=== PATIENT | female | born 1950 | race Caucasian/White ===

== ENCOUNTER 2024-02-11 20:20 | Inpatient (IN) ==
[2024-02-11 20:48] LABS: iSTAT Creatinine 0.6 mg/dl (0.6-1.3); iSTAT Hemoglobin 8.5 g/dl (12.0-16.0); iSTAT Ionized Calcium 1.06 mmol/l (1.12-1.32); iSTAT Potassium 3.4 mmol/L (3.3-5.0)
[2024-02-11] MEDS: MAGNESIUM SULFATE / D5W 1 GM/100 ML BAG IV STA (20:49)
[2024-02-11] MEDS: POTASSIUM CHLORIDE / WTR 10 MEQ/100 ML PLCT IV SCH (20:49)
[2024-02-11] MEDS: LACTATED RINGER'S 500 ML IV ONE (20:56)
[2024-02-11 21:13] LABS: Albumin Globulin Ratio 1.5 (0.9-2); Albumin Level 2.9 gm/dl (3.4-5.0); Bilirubin,Total 1.2 mg/dl (0.2-1.0); Calcium 8.3 mg/dl (8.6-10.3); Creatinine Clr Calc Pharmacy 77.1 ml/min; Magnesium 1.8 mg/dl (1.7-2.4); Phosphorus 3.3 mg/dl (2.5-4.9); Potassium 3.5 mmol/L (3.5-5.1); Total Protein 4.9 gm/dl (6.0-8.3)
[2024-02-11 21:19] LABS: INR 1.1 (0.9-1.1); Prothrombin Time 11.7 Seconds (9.0-12.0)
--- NOTE | 2024-02-11 21:23 | Emergency Department Note ---
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 (6-23) mg/dl Creatinine (0.6-1.2) mg/dl POC Creatinine (0.6-1.3) mg/dl Est Cr Clr Drug Dosing ml/min eGFR BUN/Creatinine Ratio (10-20) Glucose (70-99(Fasting)) mg/dl POC Glucose (other) (70-99) mg/dl Lactate 2.6 H* (0.4-2.0) mmol/L Calcium (8.6-10.3) mg/dl POC Ioniz Calcium Kristine (1.12-1.32) mmol/l Phosphorus (2.5-4.9) mg/dl Magnesium (1.7-2.4) mg/dl Iron (35-150) mcg/dl Unsaturated IBC (155-355) mcg/dl Transferrin (200-360) mg/dl Ferritin (8-388) ng/ml Total Bilirubin (0.2-1.0) mg/dl AST (13-39) U/L ALT (7-52) U/L Alkaline Phosphatase (34-104) U/L Troponin I High Sens (0-14) pg/ml B-Natriuretic Peptide (0-100) pg/ml Total Protein (6.0-8.3) gm/dl Albumin (3.4-5.0) gm/dl Globulin (2.5-4.0) gm/dl Albumin/Globulin Ratio (0.9-2) Lipase (11-82) U/L Vitamin B12 (180-914) pg/ml Folate (>5.38) ng/ml Procalcitonin (0-0.5) ng/ml TSH (0.300-4.500) uIu/ml Urine Color Urine Appearance (Clear) Urine pH (4.5-7.5) Ur Specific [place] (1.000-1.030) Urine Protein (Negative) Urine Glucose (UA) (Negative) Urine Ketones (Negative) Urine Blood (Negative) Urine Nitrite (Negative) Urine Bilirubin (Negative) Urine Urobilinogen (Negative) Ur Leukocyte Esterase (Negative) Urine WBC (Auto) (0-5) /hpf Urine RBC (Auto) (0-2) /hpf U Hyaline Cast (Auto) (0-2) /lpf U Epithel Cells (Auto) (0-2) /hpf Urine Bacteria (Auto) (None Seen) Granular Casts (None Prsent) /lpf Urine Mucus (None Prsent) Nasal Screen MRSA (PCR) Negative (Negative) Adenovirus (PCR) (NotDetected) B. pertussis DNA (PCR) (NotDetected) B.parapertussis DNA PCR (NotDetected) C. pneumoniae DNA (PCR) (NotDetected) Coronavirus OC43 (PCR) (NotDetected) Coronavirus HKU1 (PCR) (NotDetected) Coronavirus 229E (PCR) (NotDetected) SARS-CoV-2 (PCR) (NotDetected) Coronavirus NL63 (PCR) (NotDetected) Human Metapneumovir PCR (NotDetected) Influenza Type A (PCR) (NotDetected) Influenza Type B (PCR) (NotDetected) M. pneumoniae (PCR) (NotDetected) Parainfluenza 1 (PCR) (NotDetected) Parainfluenza 2 (PCR) (NotDetected) Parainfluenza 3 (PCR) (NotDetected) Parainfluenza 4 (PCR) (NotDetected) RSV (PCR) (NotDetected) Entero/Rhino (PCR) (NotDetected) Administered Medications Discontinued Medications Gadobutrol (Gadobutrol 65ml Vial) 7.5 ml IV ONCE ONE Stop: 02/12/24 00:54 Last Admin: 02/12/24 00:53 Dose: 7.5 ml Documented By: YENNI Lactated Ringer's (Lr) 500 mls @ 999 mls/hr IV .Q31M ONE Stop: 02/11/24 21:10 Last Infusion: 02/11/24 21:25 Dose: Infused Documented By: Admin: 02/11/24 20:56 Dose: 999 mls/hr Documented By: ANUPAMA Potassium Chloride (K Bhupinder / Wtr) 10 meq in 100 mls @ 100 mls/hr IV Q1H ANNETTE; Protocol Stop: 02/11/24 23:44 Last Infusion: 02/12/24 01:15 Dose: Infused Documented By: Admin: 02/11/24 23:06 Dose: 100 mls/hr Documented By: Infusion: 02/11/24 22:38 Dose: Infused Documented By: Admin: 02/11/24 21:38 Dose: 100 mls/hr Documented By: Infusion: 02/11/24 21:38 Dose: Infused Documented By: Admin: 02/11/24 20:49 Dose: 100 mls/hr Documented By: EMB Magnesium Sulfate/Dextrose (Magnesium Sulfate / D5w) 1 gm in 100 mls @ 100 mls/hr IV NOW STA Stop: 02/11/24 21:40 Last Infusion: 02/11/24 21:43 Dose: Infused Documented By: Admin: 02/11/24 20:49 Dose: 100 mls/hr Documented By: EMB Lactated Ringer's (Lr) 500 mls @ 999 mls/hr IV .Q31M STA Stop: 02/12/24 00:15 Last Infusion: 02/12/24 02:10 Dose: Infused Documented By: Admin: 02/12/24 01:17 Dose: 999 mls/hr Documented By: EMB Ceftriaxone Sodium (Rocephin) 2,000 mg in 50 mls @ 100 mls/hr IV ONE STA Stop: 02/12/24 00:14 Last Infusion: 02/12/24 02:10 Dose: Infused Documented By: Admin: 02/12/24 01:17 Dose: 100 mls/hr Documented By: EMB Ioversol (Optiray 320 100ml) 92 ml IV ONCE ONE Stop: 02/11/24 22:11 Last Admin: 02/11/24 22:10 Dose: 92 ml Documented By: ALEX Imaging Data My Impression: Radiologist's Impression: Chest X-Ray 02/11/24 20:39 Exam(s): XR CXR 1 VIEW EXAM: XR Chest, 1 View CLINICAL HISTORY: Reason for exam: Chest pain, nonspecific. TECHNIQUE: Frontal view of the chest. COMPARISON: No relevant prior studies available. FINDINGS: Lungs: See below. Pleural space: Unremarkable. No pneumothorax. Heart: Unremarkable. No cardiomegaly. Mediastinum: Unremarkable. Normal mediastinal contour. Bones/joints: Unremarkable. No acute fracture. Lymph nodes: Right hilar lymphadenopathy. Patchy infiltrate right lower lobe likely infectious or inflammatory etiology. Other findings: Left chest report. IMPRESSION: Right hilar lymphadenopathy Right lower lobe pneumonia Left chest port Electronically signed by: Mejia Bell MD 02/11/24 22:[address] 02/11/24 21:41 Exam(s): CT CHEST With Contrast IV Amt: 92 ml opti 320 EXAM: CT Chest With Intravenous Contrast CLINICAL HISTORY: Reason for exam: sob, pulm edema vs pna. TECHNIQUE: Axial computed tomography images of the chest with intravenous contrast. CTDI is 16.84 mGy and DLP is 526.89 mGy-cm. Automated exposure control was utilized for the study. A dose lowering technique was utilized adhering to the principles of ALARA. CONTRAST: Patient received 92 ml opti 320 of IV contrast COMPARISON: No relevant prior studies available. FINDINGS: Limitations: Exam limited secondary to patient respiratory motion. Lungs: Unremarkable. No mass. No consolidation. No large central pulmonary embolus. Pleural space: 3.3 cm left lower lobe pulmonary mass with innumerable bilateral areas of pulmonary nodularity present. Confluent opacity within the anterior aspect the right middle lobe with small adjacent pleural effusion. Small bilateral pleural effusions. No pneumothorax. Heart: There is suggestion of a 2.2 cm mass within the left ventricle. No cardiomegaly. No significant pericardial effusion. No significant coronary artery calcifications. Bones/joints: Unremarkable. No acute fracture. No dislocation. Soft tissues: Unremarkable. Vasculature: Unremarkable. No thoracic aortic aneurysm. Lymph nodes: Unremarkable. No enlarged lymph nodes. Liver: Hypodensity right hepatic lobe measuring 1.3 cm. Left hepatic lobe hypodensity measuring 1.6 cm IMPRESSION: 3.3 cm left lower lobe pulmonary mass with innumerable bilateral areas of pulmonary nodularity present. Confluent opacity within the anterior aspect the right middle lobe with small adjacent pleural effusion. Findings are consistent with primary lung neoplasm with bilateral metastatic disease There appears to be 2.2 cm mass within the left ventricle. Echocardiogram recommended further evaluation. Hepatic hypodensities as described above. These are nonspecific findings but metastatic disease cannot be excluded. PET scan may be obtained for further evaluation. 2. Small bilateral pleural effusions. Electronically signed by: Mejia Bell MD 02/11/24 23:04 PM Brain MRI 02/12/24 00:06 EXAM: MR brain wo/w con CLINICAL HISTORY: presents via EMS with A/Fib weakness. episodes of confusion. patient answered her MRI screening questions w/o difficulty. history of breast cancer. injected 7.5cc gadavist through existing iv left arm uneventful at 0050. room A12B in the ED. sent to [facility] 492 images TECHNIQUE: Multisequential and multiplanar images of the brain were submitted for review with and without contrast. COMPARISON: None. FINDINGS: Multiple, variable sized lesions with perilesional edema and showing avid heterogeneous enhancement are noted involving both cerebral hemispheres (right more than left) add right cerebellar hemisphere. These are predominantly distributed at pratt-white matter interface. No blooming is noted in them. These show hypointense signal on T2Wt images. Largest of them measures 2.2 x 1 cm in the right high frontal lobe. Mass effect is seen in the form of effacement of adjacent sulcal spaces. No midline shift/uncal /tonsillar herniation is noted. Enhancing extra-axial lesion of size 2.3 x 0.9 cm is noted along the left anterior temporal convexity. Extraosseous soft tissue component is noted at this level, well appreciated on axial T2Wt images. Pachymeningeal thickening is smooth enhancement is noted, suggestive of pachymeningitis (more on left side). Multiple chronic small vessel ischemic changes are noted. Multiple T1 hypointense calvarium lesions are also noted, largest of them is seen in the left high frontal region, which appears expansile in nature. These are better appreciated on sagittal T1Wt images. Rest of the brain parenchyma reveals normal signal intensity. Diffusion-weighted sequences show no evidence of acute ischemic infarction. The rest of the ventricles, sulci, and basal cisterns are symmetric and normal in size and configuration. Midline structures including the pituitary gland, corpus callosum, pineal region, and brainstem are unremarkable. The craniovertebral junction is within normal limits. Severe opacification of right maxillary sinus is noted. The paranasal sinuses and mastoid air cells are clear. Orbital structures are unremarkable. Appropriate flow voids are present in the visualized intracranial vessels. IMPRESSION: 1. Multiple variable sized, avidly enhancing lesions with perilesional edema involving supratentorial and infratentorial neuroparenchyma as described above. Possibility of metastasis needs consideration. 2. 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 3. Multiple variable sized calvarial lesions as described above, possibility of metastases. 4. Chronic small vessel ischemic changes. 5. 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 6. Severe right maxillary sinusitis. Electronically signed by Enoc Sdihu 02-12-2024 02:25 AM Discharge Plan Visit Data Chief Complaint: Cardiac Assessment Stated Complaint: RAPID AFIB, DIZZY ED Provider: Troy Geronimo Discharge Problem: Atrial fibrillation status post cardioversion, Hypokalemia, Iron deficiency anemia, Elevated troponin, Abnormal CT of the chest Patient Disposition: Admitted As Inpatient Discharge Instructions Interventions: ED Discharge Assessment Last Done: 02/12/24 02:11 Discharge Problem: Iron deficiency anemia Qualifiers: Iron deficiency anemia type: unspecified iron deficiency Qualified Code(s): D 50.9 - Iron deficiency anemia, unspecified
[2024-02-11 21:24] LABS: Hematocrit (blood only) 25.7 % (37.0-47.0); Hemoglobin 8.2 g/dl (12.0-16.0); Mean Corpuscular Hemoglobin 27.4 pg (25.0-34.0); Mean Corpuscular Hgb Conc 31.9 g/dL (32.0-36.0); Mean Platelet Volume 9.7 fL (9.4-12.4); Nucleated RBC # (auto) 0.06 K/uL (0.00-0.12); Nucleated RBC % (auto) 0.4 %; Platelet Count 410 K/uL (130-400); RDW Coefficient of Variation 17.4 % (11.5-14.5); RDW Standard Deviation 54.1 fL (36.4-46.3); Red Blood Count 2.99 M/uL (4.20-5.40)
[2024-02-11 21:29] LABS: Thyroid Stimulating Hormone 2.087 uIu/ml (0.300-4.500)
[2024-02-11 21:36] LABS: Troponin I High Sensitivity 560.9 pg/ml (0-14)
[2024-02-11 21:39] LABS: Adenovirus PCR Not Detected (NotDetected); Bordetella parapertussis PCR Not Detected (NotDetected); Bordetella pertussis PCR Not Detected (NotDetected); Chlamydia pneumoniae PCR Not Detected (NotDetected); Coronavirus 229E PCR Not Detected (NotDetected); Coronavirus CoV-2 (COVID19)PCR Not Detected (NotDetected); Coronavirus HKU1 PCR Not Detected (NotDetected); Coronavirus NL63 PCR Not Detected (NotDetected); Coronavirus OC43PCR Not Detected (NotDetected); Human Metapneumovirus PCR Not Detected (NotDetected); Influenza A PCR Not Detected (NotDetected); Influenza B PCR Not Detected (NotDetected); Mycoplasma pneumoniae PCR Not Detected (NotDetected); Parainfluenza Virus 1 PCR Not Detected (NotDetected); Parainfluenza Virus 2 PCR Not Detected (NotDetected); Parainfluenza Virus 3 PCR Not Detected (NotDetected); Parainfluenza Virus 4 PCR Not Detected (NotDetected); Respiratory Syncytial VirusPCR Not Detected (NotDetected); Rhinovirus/Enterovirus PCR Not Detected (NotDetected)
[2024-02-11 21:43] LABS: Reticulocyte % 1.42 % (0.50-2.00)
[2024-02-11] MEDS: OPTIRAY 320 100ml IV ONE (22:10)
[2024-02-11 22:20] LABS: Basophils # (auto) 0.15 K/uL (0.00-0.20); Eosinophils # (auto) 0.04 K/uL (0.00-0.50); Eosinophils % (auto) 0.3 %; Immature Granulocytes # (auto) 0.81 K/uL (0.01-0.20); Immature Granulocytes % (auto) 5.4 %; Lymphocytes # (auto) 0.71 K/uL (1.20-3.40); Lymphocytes % (auto) 4.8 %; Monocytes # (auto) 0.75 K/uL (0.11-0.59); Neutrophils # (auto) 12.44 K/uL (1.40-6.50); Neutrophils % (auto) 83.5 %; Ovalocytes 1+
--- NOTE | 2024-02-11 22:48 | XRay Report ---
Exam(s): XR CXR 1 VIEW EXAM: XR Chest, 1 View CLINICAL HISTORY: Reason for exam: Chest pain, nonspecific. TECHNIQUE: Frontal view of the chest. COMPARISON: No relevant prior studies available. FINDINGS: Lungs: See below. Pleural space: Unremarkable. No pneumothorax. Heart: Unremarkable. No cardiomegaly. Mediastinum: Unremarkable. Normal mediastinal contour. Bones/joints: Unremarkable. No acute fracture. Lymph nodes: Right hilar lymphadenopathy. Patchy infiltrate right lower lobe likely infectious or inflammatory etiology. Other findings: Left chest report. IMPRESSION: Right hilar lymphadenopathy Right lower lobe pneumonia Left chest port Electronically signed by: Mejia Bell MD 02/11/24 22:46 PM
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
--- NOTE | 2024-02-11 23:06 | CT Scan Report ---
Exam(s): CT CHEST With Contrast IV Amt: 92 ml opti 320 EXAM: CT Chest With Intravenous Contrast CLINICAL HISTORY: Reason for exam: sob, pulm edema vs pna. TECHNIQUE: Axial computed tomography images of the chest with intravenous contrast. CTDI is 16.84 mGy and DLP is 526.89 mGy-cm. Automated exposure control was utilized for the study. A dose lowering technique was utilized adhering to the principles of ALARA. CONTRAST: Patient received 92 ml opti 320 of IV contrast COMPARISON: No relevant prior studies available. FINDINGS: Limitations: Exam limited secondary to patient respiratory motion. Lungs: Unremarkable. No mass. No consolidation. No large central pulmonary embolus. Pleural space: 3.3 cm left lower lobe pulmonary mass with innumerable bilateral areas of pulmonary nodularity present. Confluent opacity within the anterior aspect the right middle lobe with small adjacent pleural effusion. Small bilateral pleural effusions. No pneumothorax. Heart: There is suggestion of a 2.2 cm mass within the left ventricle. No cardiomegaly. No significant pericardial effusion. No significant coronary artery calcifications. Bones/joints: Unremarkable. No acute fracture. No dislocation. Soft tissues: Unremarkable. Vasculature: Unremarkable. No thoracic aortic aneurysm. Lymph nodes: Unremarkable. No enlarged lymph nodes. Liver: Hypodensity right hepatic lobe measuring 1.3 cm. Left hepatic lobe hypodensity measuring 1.6 cm IMPRESSION: 3.3 cm left lower lobe pulmonary mass with innumerable bilateral areas of pulmonary nodularity present. Confluent opacity within the anterior aspect the right middle lobe with small adjacent pleural effusion. Findings are consistent with primary lung neoplasm with bilateral metastatic disease There appears to be 2.2 cm mass within the left ventricle. Echocardiogram recommended further evaluation. Hepatic hypodensities as described above. These are nonspecific findings but metastatic disease cannot be excluded. PET scan may be obtained for further evaluation. 2. Small bilateral pleural effusions. Electronically signed by: Mejia Bell MD 02/11/24 23:04 PM
[2024-02-11 23:14] LABS: Appearance Urine Clear (Clear); Bacteria Urine Automated None Seen (None Seen); Bilirubin Urine Negative (Negative); Blood Urine Negative (Negative); Color Urine Yellow; Glucose Urine UA 1+ (Negative); Ketones Urine 4+ (Negative); Leukocyte Esterase Urine Negative (Negative); Nitrite Urine Negative (Negative); Protein Urine 2+ (Negative); RBC Urine Automated 0-2 /hpf (0-2); Specific Gravity Urine 1.022 (1.000-1.030); Urobilinogen Urine Negative (Negative); pH Urine 5.5 (4.5-7.5)
[2024-02-11 23:26] LABS: Granular Casts Urine Present /lpf (None Prsent); Mucus Urine Present (None Prsent)
[2024-02-11 23:27] LABS: Folate (Folic Acid),Ser orPlas 10.05 ng/ml (>5.38)
[2024-02-12] MEDS: GADOBUTROL 65ML VIAL IV ONE (00:53)
[2024-02-12] MEDS: LACTATED RINGER'S 500 ML IV STA (01:17)
[2024-02-12] MEDS: cefTRIAXone SODIUM 2,000 MG/50 ML BAG IV STA (01:17)
--- NOTE | 2024-02-12 02:26 | Magnetic Resonance Report ---
EXAM: MR brain wo/w con CLINICAL HISTORY: presents via EMS with A/Fib weakness. episodes of confusion. patient answered her MRI screening questions w/o difficulty. history of breast cancer. injected 7.5cc gadavist through existing iv left arm uneventful at 0050. room A12B in the ED. sent to [place] [id number] images TECHNIQUE: Multisequential and multiplanar images of the brain were submitted for review with and without contrast. COMPARISON: None. FINDINGS: Multiple, variable sized lesions with perilesional edema and showing avid heterogeneous enhancement are noted involving both cerebral hemispheres (right more than left) add right cerebellar hemisphere. These are predominantly distributed at pratt-white matter interface. No blooming is noted in them. These show hypointense signal on T2Wt images. Largest of them measures 2.2 x 1 cm in the right high frontal lobe. Mass effect is seen in the form of effacement of adjacent sulcal spaces. No midline shift/uncal /tonsillar herniation is noted. Enhancing extra-axial lesion of size 2.3 x 0.9 cm is noted along the left anterior temporal convexity. Extraosseous soft tissue component is noted at this level, well appreciated on axial T2Wt images. Pachymeningeal thickening is smooth enhancement is noted, suggestive of pachymeningitis (more on left side). Multiple chronic small vessel ischemic changes are noted. Multiple T1 hypointense calvarium lesions are also noted, largest of them is seen in the left high frontal region, which appears expansile in nature. These are better appreciated on sagittal T1Wt images. Rest of the brain parenchyma reveals normal signal intensity. Diffusion-weighted sequences show no evidence of acute ischemic infarction. The rest of the ventricles, sulci, and basal cisterns are symmetric and normal in size and configuration. Midline structures including the pituitary gland, corpus callosum, pineal region, and brainstem are unremarkable. The craniovertebral junction is within normal limits. Severe opacification of right maxillary sinus is noted. The paranasal sinuses and mastoid air cells are clear. Orbital structures are unremarkable. Appropriate flow voids are present in the visualized intracranial vessels. IMPRESSION: 1. Multiple variable sized, avidly enhancing lesions with perilesional edema involving supratentorial and infratentorial neuroparenchyma as described above. Possibility of metastasis needs consideration. 2. 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 3. Multiple variable sized calvarial lesions as described above, possibility of metastases. 4. Chronic small vessel ischemic changes. 5. 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 6. Severe right maxillary sinusitis. Electronically signed by Enoc Sidhu 02-12-2024 02:25 AM
[2024-02-12 02:29] LABS: BUN Creatinine Ratio 30.8 (10-20); Calcium 7.6 mg/dl (8.6-10.3); Creatinine Clr Calc Pharmacy 94.9 ml/min; Potassium 3.9 mmol/L (3.5-5.1)
[2024-02-12] MEDS ORDERED: DEXAMETHASONE IV STA (02:51)
[2024-02-12] MEDS ORDERED: CARBOHYDRATES FOR HYPOGLYCEMIA PO PRN (02:58)
[2024-02-12] MEDS ORDERED: DEXTROSE 50% 50 ML SYRINGE IV PRN (02:58)
[2024-02-12] MEDS ORDERED: GLUCOSE 10 TAB/TUBE PO PRN (02:58)
[2024-02-12] MEDS ORDERED: GLUCAGON FOR INJ 1 MG VIAL SQ PRN (02:58)
[2024-02-12] MEDS ORDERED: GLUCOSE 40% GEL 15 GM TUBE PO PRN (02:58)
[2024-02-12] MEDS ORDERED: ALUMINUM/MAGNESIUM SUSP 30 ML UDC PO PRN (03:05)
[2024-02-12] MEDS ORDERED: MAGNESIUM HYDROXIDE SUSP 30 ML UDC PO PRN (03:05)
[2024-02-12] MEDS ORDERED: POLYETHYLENE (MIRALAX) 17 GM PACK PO PRN (03:05)
[2024-02-12] MEDS: LACTATED RINGER'S 1,000 ML IV STA (03:25)
[2024-02-12] MEDS: CALCIUM GLUCONATE 1,000 MG/60 ML BAG IV SCH (03:30)
[2024-02-12] MEDS: dexAMETHasone 4 MG in SYRINGE 0 ML IV ONE (03:54)
[2024-02-12] MEDS ORDERED: METOPROLOL TARTRATE 1 MG/ML VIAL IV PRN (07:20)
--- NOTE | 2024-02-12 07:20 | Hospitalist Progress Note ---
Date of Service February 12, 2024 Assessment & Plan (1) Atrial fibrillation status post cardioversion: Plan: A fib with RVR with rates in the 200s and hemodynamic instability. Cardioverted patient with prior adverse reaction to dilt and amio. Remain on metoprolol and With brain mets will hold Xarelto for now. Electrolytes are replete Continue scheduled metoprolol and prn iv doses cardiology consult maintain beta-eden at this point in time, echocar diogram reveals calcified left ventricular mass Elevated troponin from demand ischemia with elevated rate, cardioversion and cardiac mass (2) Sepsis: Plan: Patient with signs of sepsis - elevated lactate, hypotension, tachycardia, leukocytosis. Sepsis protocol for fluid resuscitation - 1.5 mL. Given 1L LR for fluid resuscitation and 1 L @ 80 mIVF. BioFire negative. Procal negative. UA contaminated specimen concern for gram negative pneumonia.-> empiric antibiotics - Ceftriaxone (3) Elevated troponin: Plan: Asymptomatic. Elevated likely in the setting of elevated rates and recent cardioversion. Will trend to peak. Would hesitate to start heparin gtt with brain mets and current level of anemia. (4) Breast cancer: Plan: Concern for metastatic breast cancer as there are suspicious lesions on the liver and the brain->patient aware that there may be new mets her oncologist, Dr. Harjeet Sawyer he returned my phone call and we discussed results of her imaging studies which she feel is significantly progressed from previous he will try to arrange an outpatient follow-up and asked if he pushed the images to him which I phoned radiology and will hopefully be in that process f/u on CT images for radiologic comparison onc consult placed - continue anastrozole 1 mg daily consider PET scan as outpt blurry vision, bilateral, imaging with suggestion of brain mets, with perilesional edema, given Decadron, with history of diabetes follow glucose Ct scan of chest suggests 2.2 cm heart mass left ventricle, pending ECHO (5) Blurry vision, bilateral: Plan: Concerning new finding. MRI with multiple variable sized lesions with cerebral edema, perilesional edema involving both cerebral hemispheres and right cerebellar hemisphere. Likely metastatic lesions from primary breast cancer. With vision changes and noted perilesional edema Decadron 4 mg daily will be utilized at this point time till she follows up with oncology (6) Iron deficiency anemia: Plan: Likely multifactorial with cancer history, current chemotherapy, and iron deficiency. Would hold off on iron infusions for now to avoid feeding any infectious or oncologic etiology. Would treat with transfusions if active bleeding, hemodynamic instability, or <7. Patient amenable, but has not been formally consented. trend hemoglobin transfuse < 7 or active bleeding peripheral smear pending ordered type and screen (7) Type 2 diabetes mellitus: Plan: History of DM - not on any medications. Added SSI for correction only as patient given Decadron. If persistently elevated could consider basal dosing, but do not anticipate this. Plan Diabetes not on any meds hypocalcemia, likely nutritional, calcium gluconate given with presentation of arrythmia HTN: holding losartan as BPs soft HLD: continue pravastatin Anxiety: continue lorazepam as needed for anxiety continue at home vitamins - calcium, biotin, B6 Code status: full DVT ppx: hold Xarelto as patient with hemoglobin of 8.2 and brain mets FENGI: regular Dispo: PCU/Tele Admission and Anticipated Discharge Date Admission Date: February 12, 2024 Subjective Unclear whether patient is affected by her intracranial metastasis as she did not want to talk to her family or update them in any means. She says her diplopia has improved. She could not give me a defined event while she landed in our hospital she typically sees her care in [facility] and lives in [facility]. I was able to get a return phone call from her oncologist at [facility] who said that the degree of disease burden has progressed substantially from their previous visits and studies Physical Exam Physical Exam: Awake alert appropriate oriented denies diplopia there is no focal strength loss through confrontational testing of arms and legs Card exam is irregular she is a systolic murmur the right sternal border Lungs are clear the wheezes or crackles extremities are without edema Results & Data Results & Data Vital Signs (Past 12 Hours) Vital Signs Temp Pulse Pulse Resp BP BP Pulse Ox 02/12/24 02:37 110 H 02/12/24 02:26 98.2 F 108 H 20 127/72 93 02/12/24 02:11 108 H 20 114/69 94 02/12/24 01:13 20 119/73 96 02/11/24 22:58 108 H 20 107/69 95 02/11/24 21:09 115 H 24 119/65 94 02/11/24 21:08 97 02/11/24 20:51 99 02/11/24 20:42 114 H 96 11/12/24 20:39 02/11/24 20:37 118 H 22 117/63 94 02/11/24 20:30 91 02/11/24 20:25 119 H 02/11/24 20:25 98.1 F 120 H 22 117/63 91 O2 Del Method O2 Flow Rate 02/12/24 02:37 02/12/24 02:26 Room Air 02/12/24 02:11 Room Air 02/12/24 01:13 Room Air 02/11/24 22:58 Room Air 02/11/24 21:09 Room Air 02/11/24 21:08 Nasal Cannula 1 02/11/24 20:51 Nasal Cannula 2 02/11/24 20:42 Nasal Cannula 2 02/11/24 20:39 Nasal Cannula 2 02/11/24 20:37 Nasal Cannula 2 02/11/24 20:30 Room Air 0 02/11/24 20:25 02/11/24 20:25 Room Air Laboratory Results Reviewed CBC reviewed chemistry reviewed troponin PG Care Time/CCT Total # of Minutes Spent Total Time Spent with Patient: Total time spent is greater than 50% in coordination of care (as documented) at patient's floor/unit and/or counseling patient: Coding Level of Care Code 87990 SUB INP/OBS CARE 3/50MIN Diagnoses Atrial fibrillation status post cardioversion I48.91 Sepsis A41.9 Elevated troponin R79.89 Breast cancer C50.919 Blurry vision, bilateral H53.8 Iron deficiency anemia D50.9 Iron deficiency anemia type: unspecified iron deficiency Type 2 diabetes mellitus E11.9 (6) Iron deficiency anemia Iron deficiency anemia type: unspecified iron deficiency Qualified Code(s): D50.9 - Iron deficiency anemia, unspecified
[2024-02-12 08:59] LABS: Hemoglobin 7.4 g/dl (12.0-16.0); Mean Corpuscular Hemoglobin 27.3 pg (25.0-34.0); Mean Corpuscular Hgb Conc 32.2 g/dL (32.0-36.0); Mean Corpuscular Volume 84.9 fL (80.0-100.0); Mean Platelet Volume 9.5 fL (9.4-12.4); Nucleated RBC # (auto) 0.15 K/uL (0.00-0.12); Nucleated RBC % (auto) 1.2 %; Platelet Count 410 K/uL (130-400); RDW Coefficient of Variation 17.9 % (11.5-14.5); RDW Standard Deviation 54.5 fL (36.4-46.3); Red Blood Count 2.71 M/uL (4.20-5.40); White Blood Count 13.02 K/ul (4.8-10.8)
[2024-02-12 09:04] LABS: BUN Creatinine Ratio 28.8 (10-20); Calcium 8.6 mg/dl (8.6-10.3); Creatinine Clr Calc Pharmacy 94.1 ml/min
[2024-02-12] MEDS: PRAVASTATIN SOD 40 MG TAB PO SCH (09:05)
[2024-02-12] MEDS: CHOLECALCIFEROL 125 MCG (5,000 UNITS) TAB PO SCH (09:05)
[2024-02-12] MEDS: ANASTROZOLE 1 MG TAB PO SCH (09:05)
[2024-02-12] MEDS: PYRIDOXINE HCL 50 MG TAB PO SCH (09:05)
[2024-02-12] MEDS: METOPROLOL SUCC 25MG EXT REL TAB PO SCH (09:05)
[2024-02-12] MEDS: INSULIN ASPART PER UNIT CHARGE SC SCH (09:06)
[2024-02-12 12:52] LABS: BUN Creatinine Ratio 29.6 (10-20); Calcium 8.6 mg/dl (8.6-10.3); Creatinine Clr Calc Pharmacy 90.7 ml/min; Potassium 4.2 mmol/L (3.5-5.1)
--- NOTE | 2024-02-12 13:23 | Oncology Consultation ---
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 Reportedly she is undergoing chemotherapy for the angiosarcoma however she has progressed intracranially so there will be a change in plan of her treatment going forward. She may benefit from palliative systemic chemotherapy systemically however intracranial disease will be managed differently. (2) Metastasis to brain: For metastatic disease to the brain it may be prudent to consult our radiation oncology colleagues as the patient may benefit from whole brain radiation therapy as she has multiple mets. However I am not sure whether she will respond given that she has angiosarcoma. Generally speaking, multifocal intracranial disease is managed with whole brain radiation regardless of the type of cancer. Keeping this in mind recommend evaluation with our radiation oncology colleagues. Noted that there is perilesional cerebral edema however there is no midline shift, agree with continuing the patient on Decadron for now. I would also be prudent to obtain the records from [facility] to see if these brain lesions are known or whether they are new. It will especially be important to understand that if our oncology colleagues decide to treat her with a whole brain radiation therapy as recurrent radiation to the brain is generally not recommended. Keeping this in mind we will obtain up-to-date records from [facility]. Plan Thank you for this interesting oncological consult. A total of 60 minutes was spent in counseling, coordination of care, review of prior records. Medical oncology will continue to follow the patient make appropriate recommendations. History of Present Illness Reason for Consultation: Angiosarcoma, postradiation Attending Physician: Nell Lynne, DO History of Present Illness At this time all of my history is obtained from the medical record I did as I did not have the most up-to-date treatment records for this patient. 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 She received chemotherapy and then underwent right mastectomy in December 2022. Subsequently she received postoperative radiation therapy. She continued systemic therapy with my colleagues at [facility], specifically Dr. Harjeet Li. I do not have the most up-to-date records for her cancer treatment. The patient developed worsening shortness of breath and palpitations, was noted to have atrial fibrillation/flutter. She has systemic disease at this point and is currently undergoing palliative systemic chemotherapy. During this admission a brain MRI was performed on 02/11/2024 which revealed multiple variable sized avidly enhancing lesions with perilesional edema involving supratentorial and infratentorial neuro parenchyma. There was an enhancing extra-axial lesion of 2.3 x 0.9 cm in the left anterior temporal convexity suggestive of leptomeningeal/calvarial metastasis. Medical oncology has been consulted to assist in management of this patient with known recurrent angiosarcoma with intracranial disease. During my interview with the patient she was awake and alert, did not have any confusion. She was able to answer all of my questions appropriately. Allergies Allergy/AdvReac Type Severity Reaction Status Date / Time thimerosal Allergy Severe caused Verified 09/10/23 09:49 blindness adhesive tape AdvReac Mild Unknown Verified 02/11/24 21:25 codeine AdvReac Mild Unknown Verified 02/11/24 21:25 Penicillins AdvReac Mild Unknown Unverified 02/11/24 21:25 amiodarone AdvReac Unknown Unknown Verified 02/11/24 21:25 diltiazem [From [facility]] AdvReac Unknown Unknown Verified 02/11/24 21:25 Home Medications Medication Instructions Recorded Confirmed Type anastrozole 1 mg tablet (Arimidex) 1 mg PO DAILY 09/03/22 02/11/24 History biotin 1 mg tablet 1 mg PO DAILY 09/03/22 02/11/24 History calcium citrate 250 mg PO DAILY 09/03/22 02/11/24 History cholecalciferol (vitamin D3) 125 125 mcg PO DAILY 09/03/22 02/11/24 History mcg (5,000 unit) capsule losartan 50 mg tablet (Cozaar) 50 mg PO DAILY 09/03/22 02/11/24 History metoprolol succinate 25 mg 25 mg PO DAILY 09/03/22 02/11/24 History tablet,extended release 24 hr (Toprol XL) rivaroxaban 20 mg tablet (Xarelto) 20 mg PO QPM 09/03/22 02/11/24 History lorazepam 0.5 mg tablet 0.5 mg PO DAILY PRN anxiety #10 12/21/22 02/11/24 Rx tabs pyridoxine (vitamin B6) 100 mg 100 mg PO 1XD 02/12/23 02/11/24 History tablet pravastatin 40 mg tablet 40 mg PO DAILY #90 tabs 09/10/23 02/11/24 Rx Patient History Surgical History [place] teeth extracted H/O lumpectomy right side 2009 Hx of tonsillectomy 1985 Family History Mother Cancer Son Colorectal cancer Father Hypertension Heart disease Denies family history of Ovarian cancer Prostate cancer Diabetes Kidney disease Lung cancer Social History Smoking Status: Never smoker Tobacco Type: Declines Second Hand Exposure: No; Do You Dip or Chew Tobacco: No; Tobacco Cessation Education Requested by Patient: No Hx Alcohol Use: No Hx Substance Use: No Preferred Language: Italian Communication Ability: Effective Visual Impairment: Limited Hearing Ability: Normal 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 Beliefs That Will Affect Care: None marital status: Current Living Situation: Alone current occupational status: retired How many Children do You have: 4 Other Information That Helps Us Care for You: No other: Pt states she is a Extremily Anxious individual Feels Safe at Home: Yes Safety Concerns: Feels Safe At This Time in current or past relationships, have you been: threatened Childhood Exposure to Second-Hand Smoke: No Diet: low carbohydrate caffeine: No during the past year weight has: decreased > 10 lbs Dental Care, Regularly: Yes Physical Activity Frequency: Daily Seatbelt Use: always Sunscreen Use: Yes Assistive Devices: None Review of Systems Review of Systems: All systems reviewed & are unremarkable except as noted in HPI & below Constitutional: as per Subjective / HPI Eyes: as per Subjective / HPI Ear, Nose, Mouth, Throat: as per Subjective / HPI Respiratory: as per Subjective / HPI Cardiovascular: as per Subjective / HPI Gastrointestinal: as per Subjective / HPI Genitourinary: as per Subjective / HPI Musculoskeletal: as per Subjective / HPI Integumentary: as per Subjective / HPI Neurologic: as per Subjective / HPI Psychiatric: as per Subjective / HPI Endocrine: as per Subjective / HPI Hematologic / Lymphatic: as per Subjective / HPI Allergy / Immunological: as per Subjective / HPI Physical Exam Constitutional: WD/WN, vitals as above Eyes: PERRL, conjunctivae normal, anicteric sclerae ENMT: external ear and nose normal, oropharynx normal Neck: trachea midline, no thyromegaly Respiratory: normal respiratory effort, lungs clear to auscultation Cardiovascular: RRR, no murmur, no edema Gastrointestinal (Abdomen): normal bowel sounds, soft, nontender, no hepatosplenomegaly Musculoskeletal: no cyanosis or clubbing, extremities motor strength 5/5 Skin: no rashes, warm and dry Neurologic: patellar DTR's 2+ bilat, sensation intact Psychiatric: A+Ox3, euthymic affect Results & Data Vital Signs (Past 12 Hours) Vital Signs Temp Pulse Pulse Resp BP BP Pulse Ox 02/12/24 12:17 36.6 C 87 18 121/75 95 02/12/24 07:41 112 H 02/12/24 07:35 36.6 C 106 H 18 145/79 H 92 02/12/24 02:37 110 H 02/12/24 02:26 36.8 C 108 H 20 127/72 93 02/12/24 02:11 108 H 20 114/69 94 O2 Del Method 02/12/24 12:17 Room Air 02/12/24 07:41 02/12/24 07:35 Room Air 02/12/24 02:37 02/12/24 02:26 Room Air 02/12/24 02:11 Room Air
--- NOTE | 2024-02-12 16:13 | XCELERA ---
[id number]
[2024-02-12] MEDS: dexAMETHasone 4 MG TAB PO ONE (16:40)
--- NOTE | 2024-02-12 17:01 | Cardiology Consultation ---
Date of Consultation February 12, 2024 Assessment & Plan (1) Atrial fibrillation: (2) Elevated troponin: Plan 1. Paroxysmal atrial fibrillation: She has had recurrent atrial fibrillation and has been treated for it for a long time, however she is on minimal medications. She tells me this is because she cannot tolerate the medications, which may be true although the reason she tells me is that it makes her heart rate go fast. Perhaps she tolerates them but they are ineffective. She needs something for rate control so I am going to start digoxin and I am going to increase her metoprolol to 50 mg twice a day. I discussed follow-up with her, I told her that she should consider things like ablation or AV verónica ablation with pacemaker implantation but she was not terribly interested in that. 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 2. Elevated troponin: Her troponin was quite elevated however I do not believe it is due to myocardial infarction, it is most likely demand ischemia as her heart rate was very fast, she was hypotensive and she required cardioversion. With a negative stress test several months ago I do not think we should pursue further evaluation. History of Present Illness Reason for Consultation: Atrial fibrillation with rapid ventricular response Attending Physician: Nell Lynne DO History of Present Illness This is a 73-year-old woman who has received her cardiology care in [place]. She was brought here because the ambulance took her here rather than to [place]. She has a history of dyslipidemia, hypertension, aortic sclerosis as well as paroxysmal atrial fibrillation. She has typically been maintained on diltiazem, metoprolol succinate and Xarelto for her atrial fibrillation. An echocardiogram done elsewhere on August 09, 2023 showed normal left ventricular size and function with an ejection fraction of 60 to 65%. She does have moderate aortic sclerosis but no stenosis. She was given a pharmacologic stress test on October 15, 2023 which showed no evidence of myocardial ischemia. She also had a Holter monitor performed on October 16, 2023 which showed sinus rhythm with a heart rate ranged from 55 to 130 bpm with an average of 76. Only occasional PVCs were seen. She presents here to the emergency room with symptoms of palpitations and shortness of breath on February 11, 2024. She came in via EMS when she had a very rapid heart rate, was hemodynamically unstable and she did have a 50 J cardioversion shock performed by EMS with conversion to sinus tachycardia. Her presenting electrocardiogram here showed sinus tachycardia at 120 bpm with no acute changes. An echocardiogram done today demonstrates normal left ventricular size and function with an ejection fraction of 60 to 65% with no significant valvular abnormalities. High-sensitivity troponin measurements were somewhat elevated on presentation (561) but increased significantly to a peak of 3381 about 12 hours after presentation. At home I believe she is maintained on metoprolol succinate 25 mg daily, Xarelto 20 mg daily. It is reported that she has had adverse reactions to diltiazem and amiodarone. She cannot describe specifically what her adverse reactions were, other than to say they caused her heart rate to get very fast. Allergies Allergy/AdvReac Type Severity Reaction Status Date / Time thimerosal Allergy Severe caused Verified 09/10/23 09:49 blindness adhesive tape AdvReac Mild Unknown Verified 02/11/24 21:25 codeine AdvReac Mild Unknown Verified 02/11/24 21:25 Penicillins AdvReac Mild Unknown Unverified 02/11/24 21:25 amiodarone AdvReac Unknown Unknown Verified 02/11/24 21:25 diltiazem [From [facility]] AdvReac Unknown Unknown Verified 02/11/24 21:25 Home Medications Medication Instructions Recorded Confirmed Type anastrozole 1 mg tablet (Arimidex) 1 mg PO DAILY 09/03/22 02/11/24 History biotin 1 mg tablet 1 mg PO DAILY 09/03/22 02/11/24 History calcium citrate 250 mg PO DAILY 09/03/22 02/11/24 History cholecalciferol (vitamin D3) 125 125 mcg PO DAILY 09/03/22 02/11/24 History mcg (5,000 unit) capsule losartan 50 mg tablet (Cozaar) 50 mg PO DAILY 09/03/22 02/11/24 History metoprolol succinate 25 mg 25 mg PO DAILY 09/03/22 02/11/24 History tablet,extended release 24 hr (Toprol XL) rivaroxaban 20 mg tablet (Xarelto) 20 mg PO QPM 09/03/22 02/11/24 History lorazepam 0.5 mg tablet 0.5 mg PO DAILY PRN anxiety #10 12/21/22 02/11/24 Rx tabs pyridoxine (vitamin B6) 100 mg 100 mg PO 1XD 02/12/23 02/11/24 History tablet pravastatin 40 mg tablet 40 mg PO DAILY #90 tabs 09/10/23 02/11/24 Rx Patient History Surgical History [place] teeth extracted H/O lumpectomy right side 2009 Hx of tonsillectomy 1985 Family History Mother Cancer Son Colorectal cancer Father Hypertension Heart disease Denies family history of Ovarian cancer Prostate cancer Diabetes Kidney disease Lung cancer Social History Smoking Status: Never smoker Tobacco Type: Declines Second Hand Exposure: No; Do You Dip or Chew Tobacco: No; Tobacco Cessation Education Requested by Patient: No Hx Alcohol Use: No Hx Substance Use: No Preferred Language: [place] Communication Ability: Effective Visual Impairment: Limited Hearing Ability: Normal 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 Beliefs That Will Affect Care: None marital status: Current Living Situation: Alone current occupational status: retired How many Children do You have: 4 Other Information That Helps Us Care for You: No other: Pt states she is a Extremily Anxious individual Feels Safe at Home: Yes Safety Concerns: Feels Safe At This Time in current or past relationships, have you been: threatened Childhood Exposure to Second-Hand Smoke: No Diet: low carbohydrate caffeine: No during the past year weight has: decreased > 10 lbs Dental Care, Regularly: Yes Physical Activity Frequency: Daily Seatbelt Use: always Sunscreen Use: Yes Assistive Devices: None Review of Systems Review of Systems: Her review of systems is notable as in the HPI Results & Data Vital Signs (Past 12 Hours) Vital Signs Temp Pulse Pulse Resp BP Pulse Ox O2 Del Method 02/12/24 16:23 106 H 02/12/24 15:23 37.0 C 108 H 18 123/61 90 Room Air 02/12/24 12:17 36.6 C 87 18 121/75 95 Room Air 02/12/24 07:41 112 H 02/12/24 07:35 36.6 C 106 H 18 145/79 H 92 Room Air Laboratory Results Cardiac Enzymes 02/11/24 02/11/24 02/11/24 Range/Units 20:35 21:49 22:18 AST 70 H (13-39) U/L Troponin I High Sens 560.9 H* 1101.1 H* D (0-14) pg/ml B-Natriuretic Peptide 228 H (0-100) pg/ml 02/12/24 02/12/24 02/12/24 Range/Units 01:57 08:16 14:49 AST (13-39) U/L Troponin I High Sens 2709.0 H* D 3381.1 H* D 3032.0 H* (0-14) pg/ml B-Natriuretic Peptide (0-100) pg/ml Coagulation 02/11/24 02/11/24 Range/Units 20:35 21:49 PT 11.7 (9.0-12.0) Seconds B-Natriuretic Peptide 228 H (0-100) pg/ml CBC 02/11/24 02/12/24 Range/Units 20:35 08:16 WBC 14.90 H 13.02 H (4.8-10.8) K/ul RBC 2.99 L 2.71 L (4.20-5.40) M/uL Hgb 8.2 L 7.4 L (12.0-16.0) g/dl Hct 25.7 L 23.0 L (37.0-47.0) % Plt Count 410 H 410 H (130-400) K/uL Neut # (Auto) 12.44 H (1.40-6.50) K/uL Lymph # (Auto) 0.71 L (1.20-3.40) K/uL [place] # (Auto) 0.75 H (0.11-0.59) K/uL Eos # (Auto) 0.04 (0.00-0.50) K/uL Baso # (Auto) 0.15 (0.00-0.20) K/uL Comprehensive Metabolic Panel 02/11/24 02/12/24 02/12/24 Range/Units 20:35 01:57 08:16 Sodium 138 138 138 (136-145) mmol/L Potassium 3.5 3.9 4.0 (3.5-5.1) mmol/L Chloride 102 104 104 (98-107) mmol/L Carbon Dioxide 17 L 20 L 20 L (21-32) mmol/L BUN 16 16 15 (6-23) mg/dl Creatinine 0.64 0.52 L 0.52 L (0.6-1.2) mg/dl Glucose 136 H 127 H 135 H (70-99(Fasting)) mg/dl Calcium 8.3 L 7.6 L 8.6 (8.6-10.3) mg/dl AST 70 H (13-39) U/L ALT 17 (7-52) U/L Alkaline Phosphatase 71 (34-104) U/L Total Protein 4.9 L (6.0-8.3) gm/dl Albumin 2.9 L (3.4-5.0) gm/dl 02/12/24 Range/Units 11:46 Sodium 136 (136-145) mmol/L Potassium 4.2 (3.5-5.1) mmol/L Chloride 102 (98-107) mmol/L Carbon Dioxide 20 L (21-32) mmol/L BUN 16 (6-23) mg/dl Creatinine 0.54 L (0.6-1.2) mg/dl Glucose 191 H (70-99(Fasting)) mg/dl Calcium 8.6 (8.6-10.3) mg/dl AST (13-39) U/L ALT (7-52) U/L Alkaline Phosphatase (34-104) U/L Total Protein (6.0-8.3) gm/dl Albumin (3.4-5.0) gm/dl Intake and Output 02/12/24 02/12/24 02/12/24 06:59 14:59 22:59 Intake Total 770 / 6139.656 7152 / 1000 Balance 770 / 4546.872 5132 / 1000 Intake: IV 770 / 7217.525 9392 / 1000 Calcium Gluconate 1,000 mg In 120 / 120 60 ml @ 240 mls/hr IV Q15M ANNETTE Rx#:[id number] Lactated Ringer's 1,000 ml @ 80 500 / 500 1000 / 1000 mls/hr IV .[id number] STA Rx#: [id number] Potassium Chloride / Wtr 10 meq 100 / 281.667 In 100 ml @ 100 mls/hr IV Q1H ANNETTE Rx#:[id number] SODIUM 2,000 mg In 50 / 50 50 ml @ 100 mls/hr IV ONE STA Rx#:[id number] Other: Weight 77.3 kg Weight Measurement Method Built in [facility] Diagnostic Findings Telemetry: Sinus rhythm and sinus tachycardia, heart rate fluctuating around 100 bpm. PG Care Time/CCT Total # of Minutes Spent Total Time Spent with Patient: Total time spent is greater than 50% in coordination of care (as documented) at patient's floor/unit and/or counseling patient: Coding Level of Care Code 77525 INT INP/OBS CARE 3/75MIN Diagnoses Paroxysmal atrial fibrillation I48.0 Atrial fibrillation type: paroxysmal Elevated troponin R79.89 (1) Atrial fibrillation Atrial fibrillation type: paroxysmal Qualified Code(s): I48.0 - Paroxysmal atrial fibrillation
[2024-02-12] MEDS: DIGOXIN ELIXIR 0.05MG/ML PO SCH (19:53)
[2024-02-12] MEDS: cefTRIAXone SODIUM 2,000 MG/50 ML BAG IV SCH (22:09)
[2024-02-12] MEDS: METOPROLOL TARTRATE 50 MG TAB PO SCH (22:09)
[2024-02-13] MEDS: dexAMETHasone 4 MG TAB PO SCH (08:06)
--- NOTE | 2024-02-13 08:54 | Hospitalist Progress Note ---
Date of Service February 13, 2024 Assessment & Plan (1) Atrial fibrillation status post cardioversion: Plan: A fib with RVR with rates in the 200s and hemodynamic instability. Cardioverted patient with prior adverse reaction to dilt and amio. Remain on metoprolol and With brain mets will cautiously resume Xarelto for now. Electrolytes are replete cardiology has increased metoprolol and continue prn iv doses Added low dose digoxin echocardiogram reveals calcified left ventricular mass Elevated troponin from demand ischemia with elevated rate, cardioversion and cardiac mass (2) Sepsis: Plan: Patient with signs of sepsis - elevated lactate, hypotension, tachycardia, leukocytosis. Sepsis protocol for fluid resuscitation - 1.5 mL. Given 1L LR for fluid resuscitation and 1 L @ 80 mIVF. BioFire negative. Procal negative. UA contaminated specimen concern for gram negative pneumonia.-> empiric antibiotics - Ceftriaxone leukocytosis continue/rises we will change the more gram-negative coverage to cover possible gram-negative, pneumonia or healthcare associated pneumoniainfiltrates not in the area of her likely malignant lesion (3) Breast cancer: Plan: Concern for metastatic breast cancer as there are suspicious lesions on the liver and the brain->patient aware that there may be new mets her oncologist, Dr. Harjeet Sawyer he returned my phone call and we discussed results of her imaging studies which she feel is significantly progressed from previous he will try to arrange an outpatient follow-up and asked if he pushed the images to him which I phoned radiology and will hopefully be in that process f/u on CT images for radiologic comparison onc consult placed - continue anastrozole 1 mg daily consider PET scan as outpt blurry vision, bilateral, imaging with suggestion of brain mets, with perilesional edema, resolved after patient was given Decadron, with history of diabetes follow glucose Ct scan of chest suggests 2.2 cm heart mass left ventricle, confirmed on ECHO Patient gives permission to speak to family daughters numbers in the chart updated daughter on her metastatic disease trying to coordinate outpatient living arrangements for subsequent geographic based follow-up (4) Elevated troponin: Plan: Asymptomatic. Elevated likely in the setting of elevated rates and recent cardioversion. Will trend to peak. Would hesitate to start heparin gtt with brain mets and current level of anemia. (5) Blurry vision, bilateral: Plan: Concerning new finding. MRI with multiple variable sized lesions with cerebral edema, perilesional edema involving both cerebral hemispheres and right cerebellar hemisphere. Likely metastatic lesions from primary breast cancer. With vision changes and noted perilesional edema Decadron 4 mg daily will be utilized at this point time till she follows up with oncology (6) Iron deficiency anemia: Plan: Likely multifactorial with cancer history, current chemotherapy, and iron deficiency. pending cbc 02/12 (7) Type 2 diabetes mellitus: Plan: History of DM - not on any medications. Added SSI for correction only as patient given Decadron. If persistently elevated could consider basal dosing, but do not anticipate this. Plan Diabetes not on any meds hypocalcemia, likely nutritional, calcium gluconate given with presentation of arrythmia HTN: holding losartan as BPs soft HLD: continue pravastatin Anxiety: continue lorazepam as needed for anxiety continue at home vitamins - calcium, biotin, B6 Code status: full DVT ppx: Cautiously resume Xarelto Admission and Anticipated Discharge Date Admission Date: February 12, 2024 Subjective Patient is pleasant she voluntarily keeps her left eye closed she says her diplopia has resolved She has no other physical complaints chest pain or pressure she is eating okay Get permission to speak to her daughter I updated her daughter on her metastatic condition. Physical Exam Physical Exam: Awake alert appropriate oriented denies diplopia there is no focal strength loss through confrontational testing of arms and legs Card exam is irregular she is a systolic murmur the right sternal border Lungs are clear the wheezes or crackles extremities are without edema Results & Data Results & Data Vital Signs (Past 12 Hours) Vital Signs Temp Pulse Pulse Resp BP Pulse Ox O2 Del Method 02/13/24 08:11 Room Air 02/13/24 07:23 97.9 F 80 18 135/81 92 Room Air 02/13/24 07:21 81 02/13/24 03:40 98.6 F 69 20 141/55 H 98 Room Air 02/12/24 21:42 111 H Laboratory Results Reviewed CBC reviewed [id number] glucose Hemoglobin low but stable remains with leukocytosis PG Care Time/CCT Total # of Minutes Spent Total Time Spent with Patient: Total time spent is greater than 50% in coordination of care (as documented) at patient's floor/unit and/or counseling patient: Coding Level of Care Code 52718 SUB INP/OBS CARE 3/50MIN Diagnoses Atrial fibrillation status post cardioversion I48.91 Sepsis A41.9 Breast cancer C50.919 Elevated troponin R79.89 Blurry vision, bilateral H53.8 Iron deficiency anemia D50.9 Iron deficiency anemia type: unspecified iron deficiency Type 2 diabetes mellitus E11.9 (6) Iron deficiency anemia Iron deficiency anemia type: unspecified iron deficiency Qualified Code(s): D50.9 - Iron deficiency anemia, unspecified
--- NOTE | 2024-02-13 09:04 | Electrocardiogram Report ---
Test Reason : Blood Pressure : */* mmHG Vent. Rate : 103 BPM Atrial Rate : 103 BPM P-R Int : 130 ms QRS Dur : 76 ms QT Int : 350 ms P-R-T Axes : 50 -18 41 degrees QTcB Int : 458 ms Sinus tachycardia with Premature supraventricular complexes Otherwise normal ECG When compared with ECG of 11-Feb-2024 20:25, Premature supraventricular complexes are now Present Confirmed by Melvin Leon ([id number]) on 02/13/2024 9:03:37 AM Referred By: REFERRED SELF Confirmed By: Melvin Leon
[2024-02-13 11:48] LABS: Hematocrit (blood only) 23.9 % (37.0-47.0); Hemoglobin 7.5 g/dl (12.0-16.0); Mean Corpuscular Hemoglobin 26.5 pg (25.0-34.0); Mean Corpuscular Hgb Conc 31.4 g/dL (32.0-36.0); Mean Corpuscular Volume 84.5 fL (80.0-100.0); Mean Platelet Volume 9.3 fL (9.4-12.4); Nucleated RBC # (auto) 0.83 K/uL (0.00-0.12); Nucleated RBC % (auto) 5.1 %; Platelet Count 477 K/uL (130-400); RDW Coefficient of Variation 18.6 % (11.5-14.5); RDW Standard Deviation 55.3 fL (36.4-46.3); Red Blood Count 2.83 M/uL (4.20-5.40); White Blood Count 16.27 K/ul (4.8-10.8)
[2024-02-13] MEDS: SENNA 8.6 MG TAB PO ONE (12:37)
[2024-02-13] MEDS: DOCUSATE SODIUM 100 MG CAP PO ONE (12:37)
--- NOTE | 2024-02-13 12:42 | Cardiology Progress Note ---
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 She apparently had been intolerant to multiple negative chronotropic medications, metoprolol dose increased and digoxin low-dose (125 mcg daily) added this admission, would continue these upon discharge. Poor anticoagulation candidate given multiple brain metastases of angiosarcoma, reasonable to remain off anticoagulants at this time. Left ventricular "calcified mass" may be angiosarcoma metastases, apparently not present on July 2023 echocardiogram. Currently not interfering with LV function. Treatment would be systemic management of angiosarcoma (chemotherapy versus palliative). Prognosis obviously closely tied to degree of metastatic disease. Stable from a cardiac standpoint, will sign off. Please contact if recurrent atrial fibrillation or any other change in her cardiac status. Admission and Anticipated Discharge Date Admission Date: February 12, 2024 Subjective Clinically stable. Patient denies chest pain, dyspnea, palpitations, or lightheadedness. Telemetry shows sinus rhythm at 70-80 bpm with sporadic PVCs. Physical Exam Physical Exam: No distress. BP normotensive. Pulse 70 bpm and regular with occasional ectopy. Respirations 18 unlabored. Skin: no ecchymoses or generalized lesions. HEENT: unremarkable. Neck: JVP at the clavicle at 90 degrees, no carotid bruits. Lungs: clear. Cardiac: regular rhythm, normal S1, intact aortic closure sound, 2/6 systolic ej ection murmur right upper sternal border radiating faintly to the carotids, no diastolic murmur. Abdomen: benign. Extremities: no edema, pulses intact. Neurologic: normal affect and conversation, nonfocal. Results & Data Vital Signs (Past 12 Hours) Vital Signs Temp Pulse Pulse Resp BP Pulse Ox O2 Del Method 02/13/24 11:22 97.9 F 79 18 131/81 90 Room Air 02/13/24 08:11 Room Air 02/13/24 07:23 97.9 F 80 18 135/81 92 Room Air 02/13/24 07:21 81 02/13/24 03:40 98.6 F 69 20 141/55 H 98 Room Air PG Care Time/CCT Total # of Minutes Spent Total Time Spent with Patient: Total time spent is greater than 50% in coordination of care (as documented) at patient's floor/unit and/or counseling patient: Coding Level of Care Code 82281 SUB INP/OBS CARE 350MIN Diagnoses Paroxysmal A-fib I48.0 Elevated troponin R79.89 Angiosarcoma C49.9 Metastasis to brain C79.31
[2024-02-13] MEDS: CEFEPIME 2000MG 2,000 MG/20 ML SYR IV SCH (13:39)
--- NOTE | 2024-02-13 16:28 | Electrocardiogram Report ---
Test Reason : Blood Pressure : */* mmHG Vent. Rate : 120 BPM Atrial Rate : 120 BPM P-R Int : 134 ms QRS Dur : 68 ms QT Int : 312 ms P-R-T Axes : 42 -22 77 degrees QTcB Int : 440 ms Sinus tachycardia Otherwise normal ECG No previous ECGs available Confirmed by Melvin Leon ([id number]) on 02/13/2024 4:28:23 PM Referred By: REFERRED SELF Confirmed By: Melvin Leon
[2024-02-13] MEDS: RIVAROXABAN 20 MG TAB PO SCH (18:26)
[2024-02-13] MEDS: DOCUSATE SODIUM 100 MG CAP PO SCH (20:18)
[2024-02-13] MEDS: HEPARIN 100 UNIT/ML 5ML FLUSH FLUSH PRN (20:18)
[2024-02-13] MEDS: LORazepam 0.5 MG TAB PO PRN (23:17)
--- NOTE | 2024-02-14 00:52 | Communication Note ---
Date of Service: February 14, 2024 Alerted by nursing that patient was becoming bradycardic to the 30s with associated fatigue. Bradycardia did self resolve back into the 70s. EKG [per my read] without signs of intranodal conduction delay. Patient was started on dig 02/11 for a fib with RVR. If patient continues to have episodes of symptomatic bradycardia a different agent may need to be used. Ordered CBC, CMP, Mg to r/o other causes for bradycardia. Resident Activity Tracking Resident Involvement: Resident Care Provided Care Provided: Adult [facility]
[2024-02-14 01:58] LABS: Hematocrit (blood only) 23.4 % (37.0-47.0); Hemoglobin 7.4 g/dl (12.0-16.0); Mean Corpuscular Hgb Conc 31.6 g/dL (32.0-36.0); Mean Corpuscular Volume 85.4 fL (80.0-100.0); Mean Platelet Volume 9.4 fL (9.4-12.4); Nucleated RBC # (auto) 1.22 K/uL (0.00-0.12); Nucleated RBC % (auto) 7.6 %; Platelet Count 465 K/uL (130-400); RDW Standard Deviation 56.5 fL (36.4-46.3); Red Blood Count 2.74 M/uL (4.20-5.40); White Blood Count 16.11 K/ul (4.8-10.8)
[2024-02-14 02:11] LABS: Bilirubin,Total 0.6 mg/dl (0.2-1.0); Calcium 8.3 mg/dl (8.6-10.3); Magnesium 2.1 mg/dl (1.7-2.4); Potassium 4.4 mmol/L (3.5-5.1)
[2024-02-14 02:17] LABS: Albumin Globulin Ratio 1.7 (0.9-2); Creatinine Clr Calc Pharmacy 75.7 ml/min; Globulin 1.8 gm/dl (2.5-4.0); Total Protein 4.8 gm/dl (6.0-8.3)
[2024-02-14] MEDS: ALTEPLASE, RECOMBINANT 1 MG/ML 2ML VIAL INSTIL ONE (02:22)
[2024-02-14] MEDS: SENNA 8.6 MG TAB PO SCH (08:25)
--- NOTE | 2024-02-14 09:54 | Hospitalist Progress Note ---
<Statement entered by Helen Sarmiento MD - 02/14/24 19:00> I have reviewed vital signs, chart notes, labs and imaging. I have also discussed the management of the patient with the DAV and I agree with the exam findings documented in the history and physical examination and the documented assessment and plan unless otherwise stated below. 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 Will await results of further discussion tonight as family is gathering. Date of Service February 14, 2024 Assessment & Plan (1) Atrial fibrillation status post cardioversion: Plan: A fib with RVR with rates in the 200s and hemodynamic instability. Cardioverted on admission. patient with prior adverse reaction to dilt and amio. - With brain mets will cautiously resume Xarelto for now. - Electrolytes are replete - cardiology has increased metoprolol (25 mg-> 50 mg) and continue prn iv doses - Added low dose digoxin - echocardiogram reveals calcified left ventricular mass Elevated troponin from demand ischemia with elevated rate, cardioversion, and cardiac mass (2) Sepsis: Plan: Patient with signs of sepsis on admission - elevated lactate, hypotension, tachycardia, leukocytosis. - Sepsis protocol for fluid resuscitation - 1.5 mL. Given 1L LR for fluid resuscitation and 1 L @ 80 mIVF. 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 Harjeet Sawyer had a family meeting on 02/13, told the patient and her family that she will have weeks left to live if she chooses to go for a quality/comfort vs attempt to continue treatment - family meeting 02/13 evening to discuss plan blurry vision, bilateral, imaging with suggestion of brain mets, with perilesional edema, resolved after patient was given Decadron, with history of diabetes follow glucose - Can continue Decadron in outpatient setting for relief of symptoms Ct scan of chest suggests 2.2 cm heart mass left ventricle, confirmed on ECHO Patient gives permission to speak to family daughters numbers in the chart updated daughter on her metastatic disease trying to coordinate outpatient living arrangements for subsequent geographic based follow-up (4) Elevated troponin: Plan: Asymptomatic Elevated likely in the setting of elevated rates and recent cardioversion - trended downward - Would hesitate to start heparin gtt with brain mets and current level of anemia (5) Blurry vision, bilateral: Plan: - Concerning new finding - MRI with multiple variable sized lesions with cerebral edema, perilesional edema involving both cerebral hemispheres and right cerebellar hemisphere - Likely metastatic lesions from primary breast cancer. With vision changes and noted perilesional edema - Decadron 4 mg daily will be utilized for symptomatic management (6) Iron deficiency anemia: Plan: Likely multifactorial with cancer history, current chemotherapy, and iron deficiency - trend CBC (7) Type 2 diabetes mellitus: Plan: History of DM - not on any medications - Added SSI for correction only as patient given Decadron - If persistently elevated could consider basal dosing, but do not anticipate this Plan Diabetes not on any meds hypocalcemia, likely nutritional, calcium gluconate given 02/11 with presentation of arrythmia HTN: holding losartan as BPs soft HLD: continue pravastatin Anxiety: continue lorazepam as needed for anxiety continue at home vitamins - calcium, biotin, B6 Code status: full DVT ppx: Cautiously resume Xarelto Admission and Anticipated Discharge Date Admission Date: February 12, 2024 Subjective Patient seen at bedside, doing well. She stated she has a very mild cough, no mucus production. Along with a very mild runny nose. She denies sore throat and dyspnea. She is to have cardiology and oncology follow-up after discharge. She has [facility] see her once a week at home. She feels ready to go home soon. Nighttime resident noted bradycardia, since resolved. Discussed with cardiology, telemetry did not show any significant or sustained heart rate slowing or pauses. Tele: Sinus, occasional PVC, Hr 80s-90s. One episode of tachycardia noted - 112. Spoke with patient's daughter, Lauren, on the phone. She stated that the family was in the dark regarding her diagnosed cancer for the past few years. They have just found out about it this week. She had a family meeting with the patient and her oncologist, he updated them that with the recent metastasis of angiosarcoma, she may only have weeks to live. They can choose to go for a quality of life with home hospice versus quantity with more treatment. They are coming in around 1800 today to discuss their plan. revisited patient and family at 1830, still waiting for other family members to arrive to discuss making a decision. Will update provider tomorrow regarding her choice of care. Review of Systems Review of Systems: see HPI Physical Exam Physical Exam: The patient is awake, alert and oriented 3, well developed and well nourished, normocephalic and atraumatic, in no acute distress. Non-toxic appearing. HEENT- EOMI, mucous membranes moist. Hearing grossly intact. Heart-normal S1 and S2. No murmurs, rubs or gallops. Port in place. Lungs-clear bilaterally, no respiratory distress, no accessory muscle use. Abdomen-normal bowel sounds and soft. No ascites noted. Non-tender. Extremities- no clubbing, cyanosis, or edema. Rheumatologic-normal range of motion. Psychiatric-normal affect. Results & Data Results & Data Vital Signs (Past 12 Hours) Vital Signs Temp Pulse Pulse Resp BP Pulse Ox Pulse Ox 02/14/24 07:43 36.5 C 80 18 127/61 94 02/14/24 07:00 85 02/14/24 03:24 36.5 C 106 H 20 150/92 H 90 02/14/24 03:00 90 02/14/24 00:36 79 16 125/76 91 02/13/24 23:50 84 02/13/24 22:39 36.7 C 79 18 133/79 91 02/13/24 22:33 O2 Del Method O2 Del Method 02/14/24 07:43 Room Air 02/14/24 07:00 02/14/24 03:24 Room Air 02/14/24 03:00 Room Air 02/14/24 00:36 Room Air 02/13/24 23:50 02/13/24 22:39 Room Air 02/13/24 22:33 Room Air Laboratory Results Reviewed CBC and BMP PG Care Time/CCT Total # of Minutes Spent Total Time Spent with Patient: Total time spent is greater than 50% in coordination of care (as documented) at patient's floor/unit and/or counseling patient: Coding Level of Care Code 34377 SUB INP/OBS CARE 50MIN Diagnoses Atrial fibrillation status post cardioversion I48.91 Sepsis A41.9 Breast cancer C50.919 Elevated troponin R79.89 Blurry vision, bilateral H53.8 Iron deficiency anemia D50.9 Iron deficiency anemia type: unspecified iron deficiency Type 2 diabetes mellitus E11.9 (6) Iron deficiency anemia Iron deficiency anemia type: unspecified iron deficiency Qualified Code(s): D50.9 - Iron deficiency anemia, unspecified
--- NOTE | 2024-02-14 10:12 | Electrocardiogram Report ---
Test Reason : Blood Pressure : */* mmHG Vent. Rate : 70 BPM Atrial Rate : 70 BPM P-R Int : 134 ms QRS Dur : 78 ms QT Int : 416 ms P-R-T Axes : 5 -20 2 degrees QTcB Int : 449 ms Normal sinus rhythm Diffuse Minor Nonspecific T wave abnormality Abnormal ECG When compared with ECG of 12-Feb-2024 08:00, Premature supraventricular complexes are no longer Present Nonspecific T wave abnormality now evident in Inferior leads Confirmed by Melvin Leon ([id number]) on 02/14/2024 10:11:55 AM Referred By: REFERRED SELF Confirmed By: Melvin Leon
--- NOTE | 2024-02-14 15:12 | Cardiology Progress Note ---
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 Rhythm remains sinus on metoprolol tartrate 50 mg twice daily and digoxin 125 mcg daily. Although there was mention of bradycardia overnight, review of telemetry did not show any significant or sustained heart rate slowing or pauses (may have been monitor showing low heart rate due to ventricular ectopy). As such, would not change her negative chronotropic regimen at this time. As noted, overall prognosis closely tied to a degree of metastatic disease. Will sign off from a cardiac standpoint, please contact if any change in her cardiac status. Admission and Anticipated Discharge Date Admission Date: February 12, 2024 Subjective Clinically stable. Patient denies chest pain, dyspnea, palpitations, or lightheadedness. Telemetry showed sinus rhythm in the 70 bpm range with PVCs, review of rhythm strips did not show any significant bradycardia or recurrence of atrial fibrillation. Physical Exam Physical Exam: No distress. BP normotensive. Pulse 70 bpm and regular with occasional ectopy. Respirations 18 unlabored. Skin: no ecchymoses or generalized lesions. HEENT: unremarkable. Neck: JVP at the clavicle at 90 degrees, no carotid bruits. Lungs: clear. Cardiac: regular rhythm, normal S1, intact aortic closure sound, 2/6 systolic ejection murmur right upper sternal border radiating faintly to the carotids, no diastolic murmur. Abdomen: benign. Extremities: no edema, pulses intact. Neurologic: normal affect and conversation, nonfocal. Results & Data Vital Signs (Past 12 Hours) Vital Signs Temp Pulse Pulse Resp BP Pulse Ox O2 Del Method 02/14/24 11:21 97.3 F L 73 18 136/82 91 Room Air 02/14/24 07:43 97.7 F 80 18 127/61 94 Room Air 02/14/24 07:00 85 02/14/24 03:24 97.7 F 106 H 20 150/92 H 90 Room Air Laboratory Results Normal electrolytes, BUN 26, creatinine 0.65. PG Care Time/CCT Total # of Minutes Spent Total Time Spent with Patient: Total time spent is greater than 50% in coordination of care (as documented) at patient's floor/unit and/or counseling patient: Coding Level of Care Code 12192 SUB INP/OBS CARE Diagnoses Paroxysmal A-fib I48.0 Elevated troponin R79.89 Angiosarcoma C49.9 Metastasis to brain C79.31
[2024-02-14] MEDS: bisacodyL 10 MG SUPP PR PRN (20:28)
[2024-02-15] MEDS: LORazepam 0.5 MG TAB PO STA (00:03)
--- NOTE | 2024-02-15 13:43 | Hospitalist Progress Note ---
Date of Service February 15, 2024 Assessment & Plan (1) Atrial fibrillation status post cardioversion: Plan: A fib with RVR with rates in the 200s and hemodynamic instability. Cardioverted on admission. patient with prior adverse reaction to dilt and amio. - With brain mets will cautiously resume Xarelto for now. - Electrolytes are replete - cardiology has increased metoprolol (25 mg-> 50 mg) and continue prn iv doses - Added low dose digoxin 125 mcg - echocardiogram reveals calcified left ventricular mass Elevated troponin from demand ischemia with elevated rate, cardioversion, and cardiac mass (2) Sepsis: Plan: Patient with signs of sepsis on admission - elevated lactate, hypotension, tachycardia, leukocytosis. - Sepsis protocol for fluid resuscitation - 1.5 mL. Given 1L LR for fluid resuscitation and 1 L @ 80 mIVF. 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 Harjeet Sawyer had a family meeting on 02/13, told the patient and her family that she will have weeks left to live if she chooses to go for a quality/comfort vs attempt to continue treatment Patient and family decided on comfort measures blurry vision, bilateral, imaging with suggestion of brain mets, with perilesi onal edema, resolved after patient was given Decadron, with history of diabetes follow glucose - Can continue Decadron in outpatient setting for relief of symptoms Ct scan of chest suggests 2.2 cm heart mass left ventricle, confirmed on ECHO (4) Elevated troponin: Plan: Asymptomatic Elevated likely in the setting of elevated rates and recent cardioversion - trended downward - Would hesitate to start heparin gtt with brain mets and current level of anemia (5) Blurry vision, bilateral: Plan: - Concerning new finding - MRI with multiple variable sized lesions with cerebral edema, perilesional edema involving both cerebral hemispheres and right cerebellar hemisphere - Likely metastatic lesions from primary breast cancer. With vision changes and noted perilesional edema - Decadron 4 mg daily will be utilized for symptomatic management (6) Iron deficiency anemia: Plan: Likely multifactorial with cancer history, current chemotherapy, and iron deficiency - trend CBC (7) Type 2 diabetes mellitus: Plan: History of DM - not on any medications - Added SSI for correction only as patient given Decadron - If persistently elevated could consider basal dosing, but do not anticipate this Plan Diabetes not on any meds hypocalcemia, likely nutritional, calcium gluconate given 02/11 with presentation of arrythmia HTN: holding losartan as BPs soft HLD: continue pravastatin Anxiety: continue lorazepam as needed for anxiety continue at home vitamins - calcium, biotin, B6 Code status: full DVT ppx: Cautiously resume Xarelto Admission and Anticipated Discharge Date Admission Date: February 12, 2024 Subjective Patient was seen and examined at 9:30 AM. She stated that she has made the decision to focus on quality of life. She has decided on comfort care. At this time, she is comfortable. She has no pain or shortness of breath. She prefers to keep her eyes closed because the light bothers her. Other than that, she has no complaints Review of Systems Review of Systems: All systems reviewed & are unremarkable except as noted in Subjective Physical Exam Physical Exam: General: Awake, conversant. Patient preferred to keep her eyes shut during our conversation Heart: S1, S2/regular rate and rhythm, no murmur rubs or gallops Lungs: Clear to auscultation bilaterally. Normal effort Abdomen: Soft/nontender/nondistended. No hepatosplenomegaly Extremities: No clubbing/cyanosis. No edema Behavior: Appropriate, cooperative Results & Data Results & Data Vital Signs (Past 12 Hours) Vital Signs Temp Pulse Resp BP Pulse Ox Pulse Ox O2 Del Method 02/15/24 10:58 36.5 C 75 20 126/70 91 Room Air 02/15/24 08:00 36.7 C 88 20 151/88 H 90 Room Air 02/15/24 03:41 36.4 C L 86 18 154/87 H 88 L Room Air 02/15/24 03:00 90 O2 Del Method 02/15/24 10:58 02/15/24 08:00 02/15/24 03:41 02/15/24 03:00 Room Air Laboratory Results Abnormal lab results 02/14/24 02/14/24 02/15/24 Range/Units 16:53 20:27 07:24 POC Glucose 191 H 222 H 123 H (70-99) mg/dl 02/15/24 Range/Units 11:12 POC Glucose 159 H (70-99) mg/dl PG Care Time/CCT Total # of Minutes Spent Total Time Spent with Patient: Total time spent is greater than 50% in coordination of care (as documented) at patient's floor/unit and/or counseling patient: Coding Level of Care Code 02403 SUB INP/OBS CARE 2/35MIN Diagnoses Atrial fibrillation status post cardioversion I48.91 Sepsis A41.9 Breast cancer C50.919 Elevated troponin R79.89 Blurry vision, bilateral H53.8 Iron deficiency anemia D50.9 Iron deficiency anemia type: unspecified iron deficiency Type 2 diabetes mellitus E11.9 (6) Iron deficiency anemia Iron deficiency anemia type: unspecified iron deficiency Qualified Code(s): D50.9 - Iron deficiency anemia, unspecified
[2024-02-15] MEDS: LORazepam 0.5 MG TAB PO PRN (19:54)
[2024-02-16] MEDS: ACETAMINOPHEN 325 MG TAB PO PRN (06:42)
--- NOTE | 2024-02-16 11:26 | Hospitalist Progress Note ---
Date of Service February 16, 2024 Assessment & Plan (1) Atrial fibrillation status post cardioversion: Plan: A fib with RVR with rates in the 200s and hemodynamic instability. Cardioverted on admission. patient with prior adverse reaction to dilt and amio. - With brain mets will cautiously resume Xarelto for now. - Electrolytes are replete - cardiology has increased metoprolol (25 mg-> 50 mg) and continue prn iv doses - Added low dose digoxin 125 mcg - echocardiogram reveals calcified left ventricular mass Elevated troponin from demand ischemia with elevated rate, cardioversion, and cardiac mass Will continue metoprolol, digoxin and Xarelto even though she is comfort care now to prevent palpitations causing distress. (2) Sepsis: Plan: Patient with signs of sepsis on admission - elevated lactate, hypotension, tachycardia, leukocytosis. - Sepsis protocol for fluid resuscitation - 1.5 mL. Given 1L LR for fluid resuscitation and 1 L @ 80 mIVF. - BioFire negative - Procal negative - UA contaminated specimen - concern for gram negative pneumonia -> empiric antibiotics - Cefepime. 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, Dr. Harjeet Sawyer had a family meeting on 02/13, told the patient and her family that she will have weeks left to live if she chooses to go for a quality/comfort vs attempt to continue treatment Patient and family decided on comfort measures blurry vision, bilateral, imaging with suggestion of brain mets, with perilesional edema, resolved after patient was given Decadron, with history of diabetes follow glucose - Can continue Decadron in outpatient setting for relief of symptoms Ct scan of chest suggests 2.2 cm heart mass left ventricle, confirmed on ECHO Will continue Decadron p.o. for symptom relief (4) Elevated troponin: Plan: Asymptomatic Elevated likely in the setting of elevated rates and recent cardioversion - trended downward - Would hesitate to start heparin gtt with brain mets and current level of anemia (5) Blurry vision, bilateral: Plan: - Concerning new finding - MRI with multiple variable sized lesions with cerebral edema, perilesional edema involving both cerebral hemispheres and right cerebellar hemisphere - Likely metastatic lesions from primary breast cancer. With vision changes and noted perilesional edema - Decadron 4 mg daily will be utilized for symptomatic management (6) Iron deficiency anemia: Plan: Likely multifactorial with cancer history, current chemotherapy, and iron deficiency (7) Type 2 diabetes mellitus: Plan: History of DM - not on any medications - Added SSI for correction only as patient given Decadron - If persistently elevated could consider basal dosing, but do not anticipate this Plan Diabetes not on any meds hypocalcemia, likely nutritional, calcium gluconate given 02/11 with presentation of arrythmia HTN: holding losartan as BPs soft HLD: Will discontinue pravastatin as currently comfort care Anxiety: continue lorazepam as needed for anxiety Discontinue home vitamins - calcium, biotin, B6 Code status: full DVT ppx: Cautiously resume Xarelto Admission and Anticipated Discharge Date Admission Date: February 12, 2024 Subjective Patient was seen and examined at 9 AM. She denied chest pain or shortness of breath. She has had some anxiety requiring Ativan p.o. Review of Systems Review of Systems: All systems reviewed & are unremarkable except as noted in Subjective Physical Exam Physical Exam: General: Awake, conversant. Patient preferred to keep her eyes shut during our conversation Heart: S1, S2/regular rate and rhythm, no murmur rubs or gallops Lungs: Clear to auscultation bilaterally. Normal effort Abdomen: Soft/nontender/nondistended. No hepatosplenomegaly Extremities: No clubbing/cyanosis. No edema Behavior: Appropriate, cooperative Results & Data Results & Data Vital Signs (Past 12 Hours) Vital Signs Temp Pulse Pulse Resp BP Pulse Ox Pulse Ox 02/16/24 10:59 36.5 C 71 16 152/53 H 90 02/16/24 08:00 102 H 02/16/24 08:00 36.4 C L 92 H 16 127/55 L 92 02/16/24 03:56 36.4 C L 90 18 152/84 H 90 02/16/24 03:00 90 O2 Del Method O2 Del Method 02/16/24 10:59 Room Air 02/16/24 08:00 02/16/24 08:00 Room Air 02/16/24 03:56 Room Air 02/16/24 03:00 Room Air Laboratory Results Abnormal lab results 02/15/24 02/15/24 02/16/24 Range/Units 16:17 20:20 11:20 POC Glucose 176 H 169 H 103 H (70-99) mg/dl PG Care Time/CCT Total # of Minutes Spent Total Time Spent with Patient: Total time spent is greater than 50% in coordination of care (as documented) at patient's floor/unit and/or counseling patient: Coding Level of Care Code 27306 SUB INP/OBS CARE 2/35MIN Diagnoses Atrial fibrillation status post cardioversion I48.91 Sepsis A41.9 Breast cancer C50.919 Elevated troponin R79.89 Blurry vision, bilateral H53.8 Iron deficiency anemia D50.9 Iron deficiency anemia type: unspecified iron deficiency Type 2 diabetes mellitus E11.9 (6) Iron deficiency anemia Iron deficiency anemia type: unspecified iron deficiency Qualified Code(s): D50.9 - Iron deficiency anemia, unspecified
[2024-02-17] MEDS ORDERED: ACETAMINOPHEN 1,000 MG/100 ML VIAL IV PRN (04:19)
[2024-02-17] MEDS ORDERED: GLYCOPYRROLATE 0.2 MG/ML VIAL IV PRN (04:24)
[2024-02-17] MEDS: MoRPHine SULFATE 2 MG/ML CARP IV PRN (05:02)
[2024-02-17] MEDS ORDERED: ONDANSETRON INJ 2 MG/ML 2 ML VIAL IV PRN (07:13)
[2024-02-17] MEDS ORDERED: MoRPHine SULFATE 10 MG/0.5 ML UDP PO PRN (07:13)
--- NOTE | 2024-02-17 15:21 | Hospitalist Progress Note ---
Date of Service February 17, 2024 Assessment & Plan (1) Atrial fibrillation status post cardioversion: Plan: A fib with RVR with rates in the 200s and hemodynamic instability. Cardioverted on admission. patient with prior adverse reaction to dilt and amio. - With brain mets will cautiously resume Xarelto for now. - Electrolytes are replete - cardiology has increased metoprolol (25 mg-> 50 mg) and continue prn iv doses - Added low dose digoxin 125 mcg - echocardiogram reveals calcified left ventricular mass Elevated troponin from demand ischemia with elevated rate, cardioversion, and cardiac mass Patient was not given her p.o. medications today as she was very somnolent (2) Sepsis: Plan: Patient with signs of sepsis on admission - elevated lactate, hypotension, tachycardia, leukocytosis. - Sepsis protocol for fluid resuscitation - 1.5 mL. Given 1L LR for fluid resuscitation and 1 L @ 80 mIVF. - BioFire negative - Procal negative - UA contaminated specimen - concern for gram negative pneumonia -> empiric antibiotics - Cefepime. 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 Harjeet Sawyer had a family meeting on 02/13, told the patient and her family that she will have weeks left to live if she chooses to go for a quality/comfort vs attempt to continue treatment Patient and family decided on comfort measures blurry vision, bilateral, imaging with suggestion of brain mets, with perilesional edema, resolved after patient was given Decadron, with history of diabetes follow glucose - Can continue Decadron in outpatient setting for relief of symptoms Ct scan of chest suggests 2.2 cm heart mass left ventricle, confirmed on ECHO Will continue Decadron p.o. for symptom relief if she is able to take p.o. (4) Elevated troponin: Plan: Asymptomatic Elevated likely in the setting of elevated rates and recent cardioversion - trended downward - Would hesitate to start heparin gtt with brain mets and current level of anemia (5) Blurry vision, bilateral: Plan: - Concerning new finding - MRI with multiple variable sized lesions with cerebral edema, perilesional edema involving both cerebral hemispheres and right cerebellar hemisphere - Likely metastatic lesions from primary breast cancer. With vision changes and noted perilesional edema - Decadron 4 mg daily will be utilized for symptomatic management if she is able to take p.o. (6) Iron deficiency anemia: Plan: Likely multifactorial with cancer history, current chemotherapy, and iron deficiency (7) Type 2 diabetes mellitus: Plan: History of DM - not on any medications Discontinue fingersticks for comfort measures only Plan Discontinue most p.o. medications as patient is not able to take p.o. CODE STATUS: DNR/DNI Updated family. Likely discharge to home with hospice on 02/18 Admission and Anticipated Discharge Date Admission Date: February 12, 2024 Subjective Patient was seen and examined at 9:40 AM. Per nurse, she took a turn for the worse overnight. She became very somnolent and less interactive. Comfort care medications have been initiated. Review of Systems Review of Systems: All systems reviewed & are unremarkable except as noted in Subjective Physical Exam Physical Exam: General: Somnolent. Arousable but keeps falling asleep. Patient appears comfortable Heart: S1, S2/regular rate and rhythm, no murmur rubs or gallops Lungs: Clear to auscultation bilaterally. Normal effort Abdomen: Soft/nontender/nondistended. No hepatosplenomegaly Extremities: No clubbing/cyanosis. No edema Behavior: Unable to assess Results & Data Results & Data Vital Signs (Past 12 Hours) Vital Signs Temp Pulse Resp BP Pulse Ox O2 Del Method 02/17/24 10:42 Room Air 02/17/24 07:27 36.8 C 91 H 19 127/61 92 Room Air 02/17/24 03:58 36.5 C 85 20 150/91 H 92 Room Air Laboratory Results Abnormal lab results 02/16/24 02/16/24 Range/Units 16:29 20:51 POC Glucose 140 H 117 H (70-99) mg/dl PG Care Time/CCT Total # of Minutes Spent Total Time Spent with Patient: Total time spent is greater than 50% in coordination of care (as documented) at patient's floor/unit and/or counseling patient: Coding Level of Care Code 42559 SUB INP/OBS CARE 2/35MIN Diagnoses Atrial fibrillation status post cardioversion I48.91 Sepsis A41.9 Breast cancer C50.919 Elevated troponin R79.89 Blurry vision, bilateral H53.8 Iron deficiency anemia D50.9 Iron deficiency anemia type: unspecified iron deficiency Type 2 diabetes mellitus E11.9 (6) Iron deficiency anemia Iron deficiency anemia type: unspecified iron deficiency Qualified Code(s): D50.9 - Iron deficiency anemia, unspecified
--- NOTE | 2024-02-17 19:09 | Electrocardiogram Report ---
Test Reason : Blood Pressure : */* mmHG Vent. Rate : 82 BPM Atrial Rate : 82 BPM P-R Int : 136 ms QRS Dur : 80 ms QT Int : 398 ms P-R-T Axes : 37 -20 39 degrees QTcB Int : 464 ms Sinus rhythm with Premature atrial complexes Nonspecific T wave abnormality Abnormal ECG When compared with ECG of 14-Feb-2024 00:26, Premature atrial complexes are now Present Confirmed by Jacques Gardner ([id number]) on 02/17/2024 7:08:42 PM Referred By: REFERRED SELF Confirmed By: Jacques Gardner
[2024-02-17] MEDS: LORazepam 2 MG/1 ML VIAL IV PRN (19:27)
[2024-02-17] MEDS: HYDROmorphone INJ 0.5 MG/0.5 ML SYR IV PRN (22:00)
[2024-02-18] MEDS: LORazepam 2 MG/1 ML VIAL IV PRN ×2 (00:19→20:06)
[2024-02-18] MEDS: MoRPHine SULFATE 2 MG/ML CARP IV PRN (14:21)
--- NOTE | 2024-02-18 14:50 | Hospitalist Progress Note ---
Date of Service February 18, 2024 Assessment & Plan (1) Atrial fibrillation status post cardioversion: Plan: A fib with RVR with rates in the 200s and hemodynamic instability. Cardioverted on admission. patient with prior adverse reaction to dilt and amio. - With brain mets will cautiously resume Xarelto for now. - Electrolytes are replete - cardiology has increased metoprolol (25 mg-> 50 mg) and continue prn iv doses - Added low dose digoxin 125 mcg - echocardiogram reveals calcified left ventricular mass Elevated troponin from demand ischemia with elevated rate, cardioversion, and cardiac mass Patient was not given her p.o. medications today as she was very somnolent. She is on IV comfort care meds (2) Sepsis: Plan: Patient with signs of sepsis on admission - elevated lactate, hypotension, tachycardia, leukocytosis. - Sepsis protocol for fluid resuscitation - 1.5 mL. Given 1L LR for fluid resuscitation and 1 L @ 80 mIVF. - BioFire negative - Procal negative - UA contaminated specimen - concern for gram negative pneumonia -> empiric antibiotics - Cefepime. 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 Harjeet Sawyer had a family meeting on 02/13, told the patient and her family that she will have weeks left to live if she chooses to go for a quality/comfort vs attempt to continue treatment Patient and family decided on comfort measures blurry vision, bilateral, imaging with suggestion of brain mets, with perilesional edema, resolved after patient was given Decadron, with history of diabetes follow glucose - Can continue Decadron in outpatient setting for relief of symptoms Ct scan of chest suggests 2.2 cm heart mass left ventricle, confirmed on ECHO P.o. Decadron held because she is not able to take anything by mouth. She is only on IV comfort care meds now. (4) Elevated troponin: Plan: Asymptomatic Elevated likely in the setting of elevated rates and recent cardioversion - trended downward - Would hesitate to start heparin gtt with brain mets and current level of anemia (5) Blurry vision, bilateral: Plan: - Concerning new finding - MRI with multiple variable sized lesions with cerebral edema, perilesional edema involving both cerebral hemispheres and right cerebellar hemisphere - Likely metastatic lesions from primary breast cancer. With vision changes and noted perilesional edema - Decadron 4 mg daily will be utilized for symptomatic management if she is able to take p.o. (6) Iron deficiency anemia: Plan: Likely multifactorial with cancer history, current chemotherapy, and iron deficiency (7) Type 2 diabetes mellitus: Plan: History of DM - not on any medications Discontinue fingersticks for comfort measures only Plan Discontinue most p.o. medications as patient is not able to take p.o. CODE STATUS: DNR/DNI Patient is not able to tolerate any p.o. medications. She is now on IV comfort care medications. I informed the assistant case manager that she may not be able to go home as she is dependent on IV comfort care meds. I also spoke to the family and the [id number] to update them about the plan. Admission and Anticipated Discharge Date Admission Date: February 12, 2024 Subjective Patient was seen and examined at 11:40 AM. Family at the bedside. Patient appeared to be slightly short of breath. She is somnolent. Review of Systems Review of Systems: Unobtainable due to cognitive status Physical Exam Physical Exam: General: Somnolent. Appeared to be short of breath and in mild distress Behavior: Unable to assess Results & Data Results & Data Vital Signs (Past 12 Hours) Vital Signs O2 Del Method 02/18/24 07:41 Room Air PG Care Time/CCT Total # of Minutes Spent Total Time Spent with Patient: Total time spent is greater than 50% in coordination of care (as documented) at patient's floor/unit and/or counseling patient: Coding Level of Care Code 11263 SUB INP/OBS CARE 2/35MIN Diagnoses Atrial fibrillation status post cardioversion I48.91 Sepsis A41.9 Breast cancer C50.919 Elevated troponin R79.89 Blurry vision, bilateral H53.8 Iron deficiency anemia D50.9 Iron deficiency anemia type: unspecified iron deficiency Type 2 diabetes mellitus E11.9 (6) Iron deficiency anemia Iron deficiency anemia type: unspecified iron deficiency Qualified Code(s): D50.9 - Iron deficiency anemia, unspecified
--- NOTE | 2024-02-19 16:13 | Discharge Summary ---
Date of Service February 19, 2024 Admission HPI Per Admitting Provider 73 y/o presented via EMS for worsening palpitations. Patient with worsening palpitations and shortness of breath. EMS arrived and patient was found to be in a fib/flutter with a rate in the 200s and hypotensive. Patient with a history of adverse reaction to diltiazem and amiodarone. She was successfully cardioverted prior to arrival. BPs improved following cardioversion. Patient typically on metoprolol and Xarelto outpatient for her history of a fib. Patient does have a history of breast cancer. She was diagnosed in 2007. New mass found in 2022. Patient was treated with chemotherapy and then a mastectomy with post-op radiation therapy. Patient follows with Dr. Frantz Sawyer with [facility]. 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 Currently undergoing chemotherapy. Next imaging was planned for 02/11. Patient unaware of any spread of her cancer or other organ involvement. Prior to my interview patient mentioned to nursing that they were having decreased/blurry vision. MRI Brain was ordered. Upon my interview patient reports that she is feeling significantly better. No longer having shortness of breath and her HR is much more normal. She denies any fevers or chills. No headaches, abdominal pain, nausea, vomiting, blood in the stool or urine, change in bowel or urinary habits. She does note that she's felt a little run down with a cough for the last few days. Principal Diagnosis Cerebral edema Metastatic cancer to brain Left ventricular mass History of breast cancer History of angiosarcoma Discharge Exam Patient Discharge Data Allergies Allergy/AdvReac Type Severity Reaction Status Date / Time thimerosal Allergy Severe caused Verified 09/10/23 09:49 blindness adhesive tape AdvReac Mild Unknown Verified 02/11/24 21:25 codeine AdvReac Mild Unknown Verified 02/11/24 21:25 Penicillins AdvReac Mild Unknown Unverified 02/11/24 21:25 amiodarone AdvReac Unknown Unknown Verified 02/11/24 21:25 diltiazem [From Cardizem] AdvReac Unknown Unknown Verified 02/11/24 21:25 Consultations 02/11/24 23:20 ED Decision to Admit Stat 02/12/24 00:27 HIM [Consult Health Information Management] Routine 02/12/24 02:37 Consult Oncology Routine 02/12/24 07:21 Consult Cardiology Routine Ordered Studies 02/11/24 21:41 CT chest diagnostic w con Stat 02/12/24 00:06 MR brain wo/w con Stat Hospital Course (1) Atrial fibrillation status post cardioversion: Comfort measures (2) Sepsis: Comfort measures (3) Breast cancer: Comfort measures (4) Elevated troponin: Comfort measures (5) Blurry vision, bilateral: Comfort measures (6) Iron deficiency anemia: Comfort measures (7) Type 2 diabetes mellitus: Constipation Plan This patient was admitted on 02/10 with palpitations and was found to be in rapid A-fib. A TTE showed an LV mass. Patient was complaining of bilateral blurry vision and MRI was done that showed multiple variable sized lesions with cerebral edema. This was thought to be metastatic cancer. Of note the patient has a history of breast cancer and angio carcinoma. The patient made a decision to switch goals of care to comfort care. Family was involved. Comfort care measures were initiated and the patient today at 1505 Total Time Total Time Spent Total Time Spent (In Minutes): 35 Discharge Plan Discharge Items Patient Disposition: Other Date/Time: 02/19/24 15:05
== END 2024-02-19 17:29 | disposition expired | DRG 871 ==
LOC: SUATTDRO → ED 20:20 → 4W 02-12 00:44 → SUATTDRO 02-12 00:44 → 4W 02-12 02:11 → 3E 02-17 10:33